=== PATIENT | female | born 1940 | race Native Hawaiian/Other Pacific Islander ===

== ENCOUNTER 2021-03-03 13:14 | Inpatient (IN) | payer MEDICARE ==
[~2021-03-03] VITALS: Ht 167.6 cm; Wt 64.9 kg
[2021-03-03] MEDS ORDERED: ASPIRIN (13:27)
[2021-03-03] MEDS ORDERED: LISINOPRIL (13:27)
[2021-03-03 13:44] LABS: HEMATOCRIT 34.2 % (31.2-41.9); MEAN CORPUSCULAR HEMOGLOBIN 28.2 uug (24.7-32.8); MEAN CORPUSCULAR VOLUME 85.4 fL (75.5-95.3); PLATELET COUNT (AUTO) 305 K/uL (179-408)
[2021-03-03 13:59] LABS: BILIRUBIN,DIRECT 0.1 mg/dL (0.0-0.2); BILIRUBIN,TOTAL 0.5 mg/dL (0.2-1.0); CREATININE 0.7 mg/dL (0.6-1.3)
[2021-03-03 14:01] LABS: POTASSIUM 2.5 mmol/L (3.5-5.1)
[2021-03-03] MEDS ORDERED: POTASSIUM CHLORIDE 20 MEQ TAB.PRT.SR PO ONE (14:15)
[2021-03-03] MEDS ORDERED: POTASSIUM CHLORIDE 20 MEQ TAB.PRT.SR ONE (14:29)
[2021-03-03] MEDS: MAGNESIUM SULFATE/D5W 100 ML IV SCH ×2 (14:40→21:30)
[2021-03-03] MEDS ORDERED: MAGNESIUM SULFATE/D5W 100 ML ONE ×2 (14:41→14:43)
[2021-03-03] MEDS ORDERED: POTASSIUM CHLORIDE 200 ML ONE (14:43)
[2021-03-03] MEDS ORDERED: AZITHROMYCIN IV 500 MG in IV DEXTROSE 5% 250 ML IV ONE (15:15)
[2021-03-03] MEDS ORDERED: CEFTRIAXONE 1 G in IV DEXTROSE 5% 50 ML IV ONE (15:15)
--- NOTE | 2021-03-03 15:17 | NUR ---
[facility] CALLED FOR ADMISSION.
[2021-03-03] MEDS ORDERED: ONDANSETRON ODT 4 MG TAB.RAPDIS ONE (15:43)
[2021-03-03] MEDS ORDERED: CEFTRIAXONE /D5W 50ML IVPB **ER PYXIS IV ONE (16:00)
[2021-03-03] MEDS ORDERED: ACETAMINOPHEN 325 MG TABLET PO PRN (16:30)
[2021-03-03] MEDS ORDERED: Z GUARD REMEDY PASTE 57 GM TUBE TOP PRN (16:30)
[2021-03-03] MEDS ORDERED: ONDANSETRON 4 MG/2 ML VIAL IV PRN (16:30)
[2021-03-03] MEDS ORDERED: MAGNESIUM HYDROXIDE 30 ML LIQUID UDC PO PRN (16:30)
[2021-03-03] MEDS: POTASSIUM CHLORIDE 50 ML IV SCH ×4 (16:45→22:49)
[2021-03-03] MEDS ORDERED: AZITHROMYCIN 500MG/ D5W 250ML IVPB **ER PYXIS ONLY IV ONE (16:48)
[2021-03-03] MEDS ORDERED: ONDANSETRON 4 MG/2 ML VIAL ONE (17:41)
--- NOTE | 2021-03-03 21:00 | NUR ---
Report given to ROSALIE Childers. Pt. to go to rm [id number]. Potassium and magnesium will finish upstairs, endorsed to [place].
[2021-03-03] MEDS ORDERED: POTASSIUM CHLORIDE 100 ML ONE (21:12)
[2021-03-03] MEDS ORDERED: MAGNESIUM SULFATE/D5W 200 ML ONE (21:12)
[2021-03-03 22:55] VITALS: BP 142/70
--- NOTE | 2021-03-03 23:11 | NUR ---
Admitted patient to Tele unit from Er via [facility] accompanied by Er nurse.Dx of hypokalemia secondary dx of near syncope ,chest pain and right lung mass. Patient awake alert x4.Denies chest pain at this time. O2 at 1LPM via nc saturating at 97 %.Patient has two IVs line on right AC 22g and left AC 20g with potassium IV and magnesium IV running well.NSr on Tele.Assisted patient to bathroom .Urinated well. Skin intact .Safety measures in place. Instructed patient on how to use call light button.VSS.Will continue to monitor.
[2021-03-04 04:00] VITALS: BP 123/75
[2021-03-04 06:27] LABS: MEAN CORPUSCULAR HEMOGLOBIN 28.1 uug (24.7-32.8); MEAN CORPUSCULAR VOLUME 85.2 fL (75.5-95.3); PLATELET COUNT (AUTO) 287 K/uL (179-408)
[2021-03-04 06:56] LABS: BILIRUBIN,TOTAL 0.5 mg/dL (0.2-1.0); CREATININE 0.7 mg/dL (0.6-1.3); MAGNESIUM 3.1 mg/dL (1.8-2.4); PHOSPHOROUS 3.9 mg/dL (2.5-4.9); POTASSIUM 3.6 mmol/L (3.5-5.1); TOTAL PROTEIN, SERUM 6.9 g/dL (6.4-8.2)
[2021-03-04 07:00] LABS: THYROID STIMULATING HORMONE 0.394 mIU/mL (0.358-3.740)
[2021-03-04] MEDS ORDERED: PANTOPRAZOLE SODIUM 40 MG TABLET.DR PO SCH (07:00)
--- NOTE | 2021-03-04 07:30 | NUR ---
Patient received in bed, alert and oriented x4. No c/o chest pain or other discomforts. Pt on 1L O2 via NC with coughing. notified of cough this AM. NSR on monitor. No acute distress noted at this time. Right FA and left FA IVs both intact and patent with no redness or swelling. Fall precautions in place. Will continue to monitor.
[2021-03-04] MEDS ORDERED: POTASSIUM CHLORIDE 20 MEQ POWDER PACKET PO ONE (08:30)
--- NOTE | 2021-03-04 10:00 | NUR ---
Patient on RA with O2 saturation of 94% and no SOB or difficulties breathing. No acute distress noted at this time. Will continue to monitor.
[2021-03-04] MEDS ORDERED: POTA10CA43 PO (10:59)
[2021-03-04] MEDS ORDERED: GUAI-671 PO (10:59)
[2021-03-04] MEDS ORDERED: BENZ-13 PO (10:59)
[2021-03-04 11:37] VITALS: BP 106/69
--- NOTE | 2021-03-04 11:45 | NUR ---
Patient discharged in satisfactory condition. Patient expresses understanding regarding discharge and picking up new prescriptions at the pharmacy.
== END 2021-03-04 11:45 | disposition home or self-care (01) | DRG 74 ==
LOC: ER 13:14 → TELE3 21:10
PROVIDERS: ADMIT Hospitalist; ATTEND Hospitalist
DX: G90.8 Other disorders of autonomic nervous system (principal); E87.0 Hyperosmolality and hypernatremia; E87.6 Hypokalemia; Z66 Do not resuscitate; R07.9 Chest pain, unspecified; I10 Essential (primary) hypertension; Z79.899 Other long term (current) drug therapy; Z85.118 Personal history of other malignant neoplasm of bronchus and lung; Z87.891 Personal history of nicotine dependence; Z90.710 Acquired absence of both cervix and uterus; R26.81 Unsteadiness on feet; R91.8 Other nonspecific abnormal finding of lung field; Z20.822 Contact with and (suspected) exposure to COVID-19
CPT/HCPCS: 36415; 70030-TC; 71045; 83605; 83735; 84100; 84443; 85025; 85730; 87040; 87086; 93005; A4663; G0378; J0456; J0696; J2405; J3475; J3480; J7040; Q0162